=== PATIENT | male | born 1975 | race Caucasian/White ===

== ENCOUNTER 2018-09-01 22:49 | Emergency (ER) | payer OTHER ==
[2018-09-01] MEDS ORDERED: Succinylcholine 200 MG/10 ML MDV ONE (22:53)
[2018-09-01] MEDS ORDERED: Rocuronium 50 MG/5 ML Vial ONE ×3 (22:53→23:12)
[2018-09-01] MEDS ORDERED: HYDROmorphone 1 MG/ML Syringe IVPUSH ONE (23:30)
[2018-09-01] MEDS ORDERED: HYDROmorphone 1 MG/ML Syringe ONE (23:31)
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
[2018-09-02] MEDS ORDERED: Sodium Chloride 0.9% 10 ML Syringe FLUSH PRN (00:26)
[2018-09-02] MEDS ORDERED: Sodium Chloride 0.9% 500 ML IV ONE (00:51)
[2018-09-02] MEDS ORDERED: Propofol 200 MG/20 ML SDV ONE (03:00)
[2018-09-02] MEDS ORDERED: fentaNYL 100 MCG/2 ML SDV ONE (03:00)
[2018-09-02] MEDS ORDERED: Midazolam 1 MG/ML 2 ML SDV ONE (03:03)
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
== END 2018-09-01 23:35 | disposition short-term general hospital (02) ==
LOC: VM.ED 22:49
DX: T24.222A Burn of second degree of left knee, initial encounter (principal); T25.212A Burn of second degree of left ankle, initial encounter; T25.221A Burn of second degree of right foot, initial encounter; T24.221A Burn of second degree of right knee, initial encounter; T25.291A Burn of second degree of multiple sites of right ankle and foot, initial encounter; T25.292A Burn of second degree of multiple sites of left ankle and foot, initial encounter; T21.22XA Burn of second degree of abdominal wall, initial encounter; T20.26XA Burn of second degree of forehead and cheek, initial encounter; T26.02XA Burn of left eyelid and periocular area, initial encounter; T26.01XA Burn of right eyelid and periocular area, initial encounter; X08.8XXA Exposure to other specified smoke, fire and flames, initial encounter
CPT/HCPCS: 31500; 43752; 51702; 71045; 80047; 85025; 85610; 93005; 96361; 96374; 96375; 99291-25